=== PATIENT | female | born 1950 | race Caucasian/White ===

== ENCOUNTER 2023-02-20 10:53 | Emergency (ER) | payer OTHER ==
[~2023-02-20] VITALS: Ht 175.3 cm; Wt 72.6 kg
[2023-02-20 11:03] VITALS: BP_SYST 112; PULSE 88; RESP 18; TEMP 98.1; O2SAT 97
[2023-02-20] MEDS ORDERED: predniSONE 20 MG TABLET PO ONE (11:45)
[2023-02-20] MEDS ORDERED: EPINEPHRINE HCL/PF 1 MG/ML AMP IM ONE (11:45)
[2023-02-20 13:04] LABS: BLOOD, URINE NEGATIVE (NEGATIVE); COLOR,URINE YELLOW (YELLOW); GLUCOSE,URINE NEGATIVE (NEGATIVE); KETONES,URINE TRACE (NEGATIVE); LEUKOCYTE ESTERASE ,URINE NEGATIVE (NEGATIVE); NITRITE, URINE NEGATIVE (NEGATIVE); PH,URINE 5.5 (5.0-8.0); PROTEIN URINE NEGATIVE (NEGATIVE); UROBILINOGEN,URINE 0.2 (0.2-1.0)
[2023-02-20 13:10] LABS: BILIRUBIN,URINE NEGATIVE (NEGATIVE); CLARITY/URINE SLIGHTLY HAZY (CLEAR)
[2023-02-20] MEDS ORDERED: CETI-80 PO (13:30)
[2023-02-20] MEDS ORDERED: PRED50TA PO (13:30)
[2023-02-20 13:42] VITALS: BP_SYST 121; PULSE 90; RESP 18; TEMP 98.1; O2SAT 97
== END 2023-02-20 13:41 | disposition home or self-care (01) ==
LOC: SED 10:53
DX: L50.9 Urticaria, unspecified (principal); L29.9 Pruritus, unspecified; R22.43 Localized swelling, mass and lump, lower limb, bilateral; Z79.899 Other long term (current) drug therapy
CPT/HCPCS: 99283; 96372; 81003; J7512; J0171

== ENCOUNTER 2024-04-03 14:47 | Emergency (ER) | payer OTHER ==
[~2024-04-03] VITALS: Ht 182.9 cm; Wt 74.8 kg
[~2024-04-03 14:47] MED LIST: CETI-80 PO; PRED50TA PO
[2024-04-03 14:53] VITALS: BP_SYST 119; PULSE 104; RESP 16; TEMP 97; O2SAT 98
[2024-04-03] MEDS: NACL 0.9% 2,000 ML IV ONE (16:37)
[2024-04-03 16:46] LABS: BASOPHILS % (AUTO) 0.5 % (0.0-2.0); EOSINOPHILS # (AUTO) 0.1 K/uL (0.0-0.4); EOSINOPHILS % (AUTO) 1.6 % (0.0-4.0); HEMATOCRIT 32.5 % (36-48); LYMPHOCYTES # (AUTO) 1.2 K/uL (1.0-5.5); LYMPHOCYTES % (AUTO) 16.7 % (20.5-51.5); MEAN CORPUSCULAR HEMOGLOBIN 32 pg (27-31); MEAN CORPUSCULAR HGB CONC 34 % (32-36); MEAN CORPUSCULAR VOLUME 94 fL (79.0-98.0); MONOCYTES # (AUTO) 0.4 K/uL (0.0-1.0); MONOCYTES % (AUTO) 5.6 % (1.7-9.3); NEUTROPHILS # (AUTO) 5.5 K/uL (1.8-7.7); NEUTROPHILS % (AUTO) 75.6 % (40.0-70.0); PLATELET COUNT (AUTO) 251 K/uL (130-430); RED BLOOD CELL COUNT(AUTO) 3.45 MIL/uL (4.2-6.2); RED CELL DISTRIBUTION WIDTH 12.7 % (9.0-15.0); WHITE BLOOD COUNT (AUTO) 7.2 K/uL (4.8-10.8)
[2024-04-03 17:12] LABS: ANION GAP 5 (5-15); CALCIUM 9.2 mg/dL (8.4-11.0); CARBON DIOXIDE 32 mmol/L (23-29); CHLORIDE 102 mmol/L (98-107); CREATININE 1.14 mg/dL (0.55-1.30); GLUCOSE 92 mg/dL (74-106); POTASSIUM 4.1 mmol/L (3.5-5.1); SODIUM SERUM 139 mmol/L (136-145); UREA NITROGEN, BLOOD 40 mg/dL (8-21)
[2024-04-03 17:13] LABS: ALANINE AMINOTRANSFERASE 40 U/L (12-78); ASPARTATE AMINOTRANSFERASE 26 U/L (10-37); BILIRUBIN,DIRECT 0.1 mg/dL (0.0-0.3); CREATINE KINASE, TOTAL 100 U/L (26-192); TOTAL BILIRUBIN 0.3 mg/dL (0.0-1.0); TOTAL PROTEIN, SERUM 6.9 g/dL (6.4-8.3)
[2024-04-03 17:31] LABS: INR 0.9 (0.8-1.2); PROTHROMBIN TIME 10.2 SECS (9.5-12.5)
[2024-04-03 18:46] VITALS: BP_SYST 120; PULSE 72; RESP 20; TEMP 97.4; O2SAT 99
== END 2024-04-03 18:46 | disposition home or self-care (01) ==
LOC: SED 14:47
DX: F19.10 Other psychoactive substance abuse, uncomplicated (principal); F41.9 Anxiety disorder, unspecified; R51.9 Headache, unspecified; R53.1 Weakness; Z79.899 Other long term (current) drug therapy; Z79.2 Long term (current) use of antibiotics
CPT/HCPCS: 99283; 96360; 80076; 80048; 82550; 85025; 85610; 85730; 36415; 83605; J7030